=== PATIENT | male | born 1940 | race Caucasian/White ===

== ENCOUNTER 2017-12-05 20:05 | Emergency (ER) | payer OTHER, MEDICARE ==
--- NOTE | 2017-12-05 20:12 | PDOC ---
History of Present Illness - General History Source: Patient Exam Limitations: No Limitations - History of Present Illness Initial Comments: 12/05/17 21:20 The patient is a 77 year old male who presents to the emergency department for evaluation of lower abdominal pain. The patient reports moderate lower abdominal pain after eating a salad from a supermarket yesterday evening. He describes the pain as sharp, stabbing, crampy, and localized to the left lower quadrant. The patient reports having a loose non bloody/tarry stool this morning. He states the cramps comes in waves and lasted through the night prompting to visit an urgent care today. The patient reports visiting an urgent care where he was advised to visit the emergency room to obtain imaging of his abdomen. Of note, the patient reports having a bout of diverticulitis 2-3 years ago The patient denies chest pain, shortness of breath, headache, and dizziness. Denies fevers, chills, nausea, vomiting, and any urinary/bowel symptoms. Denies recent travel. PAST MEDICAL HISTORY: Hypertension, diverticulitis, BPH. PAST SURGICAL HISTORY: Appendectomy and Hernia repair (3x). FAMILY HISTORY: no pertinent history SOCIAL HISTORY: Pt lives with his . MEDICATIONS: reviewed ALLERGIES: As per nursing notes General: No fevers or chills, no weakness, no weight loss HEENT: No change in vision. No sore throat,. No ear pain Cardiovascular: No chest pain or shortness of breath Respiratory:No cough, or wheezing. Gastrointestinal: no nausea, vomiting, diarrhea or constipation, No rectal bleeding Genitourinary: No dysuria, hematuria, or frequency Musculoskeletal: (+)Lower abdominal pain and cramping. Neurologic: No headache, vertigo, dizziness or loss of consciousness Psychiatric: nor depression Skin: No rashes or easy bruising Endocrine: no increased thirst or abnormal weight change Allergic: no skin or latex allergy All other systems reviewed and normal General: Well-nourished well-developed individual, no acute distress HEENT: Throat: Normal, tonsils normal, no erythema or exudate Neck: Supple, no meningeal signs, no lymphadenopathy Eyes:Pupils equal reactive and round, extraocular motion intact Chest: Nontender to palpation Cardiac: S1-S2 normal, regular rate and rhythm, no murmurs rubs or gallops Respiratory: Lungs clear to auscultation bilateral Abdomen: (+)Tenderness to palpation of left lower quadrant. No guarding, no rebound, no tenderness or palpable hernias in the bilateral groins. Soft, nondistended, normal bowel sounds. Extremities: Warm, dry, no cyanosis, clubbing, or edema Skin: No rashes Neuro: Alert and oriented x3, nonfocal exam, grossly intact, normal gait Psych: Normal mood and affect. <Cooper Torrez - Last Filed: 12/05/17 21:21> - General History Source: Patient Exam Limitations: No Limitations - History of Present Illness Initial Comments: 12/05/17 22:03 A portion of this note was documented by scribe services under my direction. I have reviewed the details of the note, within reason, and agree with the documentation. The case summary and management plan written by me. Medical decision making this is a 77-year-old male who comes in complaining of left lower quadrant abdominal pain. Patient was tender over his left lateral lower quadrant and does have a history of diverticulitis. Will obtain workup including CBC, comp, CAT scan of abdomen and pelvis to rule out diverticulitis or any other acute intra-abdominal pathology. CT scan abdomen shows acute diverticulitis without any abscess evidence of abscess or perforation Assessment and plan: This is a 77-year-old male with acute diverticulitis. Patient given Levaquin and Flagyl IV will be sent home on Levaquin and Flagyl by mouth and some Percocet for pain. Patient discharged home and will follow-up with his primary care doctor <Maged Chase I - Last Filed: 12/06/17 00:56> - General Chief Complaint: Pain Stated Complaint: ABD PAIN Time Seen by Provider: 12/05/17 20:11 Past History <Cooper Torrez - Last Filed: 12/05/17 21:21> - Past Medical History HTN: Yes - Surgical History Abdominal Surgery: Yes (HERNIA, APPENDIX) - Immunization History Immunization Up to Date: Yes - Suicide/Smoking/Psychosocial Hx Smoking History: Never smoked Have you smoked in the past 12 months: No Hx Alcohol Use: No Drug/Substance Use Hx: No Substance Use Type: None <Maged Chase I - Last Filed: 12/06/17 00:56> - Past Medical History Allergies/Adverse Reactions: Allergies Allergy/AdvReac Type Severity Reaction Status Date / Time No Known Allergies Allergy Verified 12/05/17 20:07 Home Medications: Ambulatory Orders Atenolol [Tenormin -] mg PO DAILY 11/30/15 Finasteride mg PO DAILY 11/30/15 Levofloxacin [Levaquin] 500 mg PO DAILY #10 tablet 12/05/17 Oxycodone HCl/Acetaminophen [Percocet 5-325 mg Tablet] 1 - 2 tab PO Q4H #6 tablet MDD 6 12/05/17 Tamsulosin HCl [Flomax] 0.4 mg PO DAILY 12/05/17 metroNIDAZOLE [Flagyl -] 500 mg PO BID #20 tablet 12/05/17 *Physical Exam - Vital Signs Last Vital Signs Temp Pulse Resp BP Pulse Ox 98.7 F 87 18 148/78 100 12/05/17 20:05 12/05/17 20:05 12/05/17 20:05 12/05/17 20:05 12/05/17 20:05 <Cooper Torrez - Last Filed: 12/05/17 21:21> ED Treatment Course - LABORATORY CBC & Chemistry Diagram: 12/05/17 20:43 12/05/17 20:43 - ADDITIONAL ORDERS Additional order review: Laboratory Results 12/05/17 12/05/17 20:43 20:43 Sodium 134 L Potassium 3.6 Chloride 100 Carbon Dioxide 26 Anion Gap 8 BUN 16 Creatinine 0.9 Creat Clearance w eGFR > 60 Random Glucose 105 Calcium 9.1 Total Bilirubin 0.8 AST 20 ALT 18 Alkaline Phosphatase 90 Total Protein 7.5 Albumin 3.6 Urine Color Yellow Urine Appearance Clear Urine pH 5.5 Ur Specific [place] 1.020 Urine Protein Negative Urine Glucose (UA) Negative Urine Ketones 2+ H Urine Blood Trace-lysed H Urine Nitrite Negative Urine Bilirubin Negative Urine Urobilinogen 0.2 Ur Leukocyte Esterase Negative 12/05/17 20:43 RBC 4.83 MCV 85.7 MCHC 34.2 RDW 13.2 MPV 9.3 Neutrophils % 84.5 H Lymphocytes % 10.2 Monocytes % 4.5 Eosinophils % 0.4 Basophils % 0.4 - Medications Given in the ED: ED Medications Discontinued Medications Generic Name Dose Route Start Last Admin Trade Name Freq PRN Reason Stop Dose Admin Ketorolac Tromethamine 60 mg 12/05/17 20:38 12/05/17 20:55 Toradol Injection - IM 12/05/17 20:39 Not Given ONCE ONE Morphine Sulfate 4 mg 12/05/17 21:04 12/05/17 21:13 Morphine Injection - IVPUSH 12/05/17 21:05 4 mg ONCE ONE Administration <Cooper Torrez - Last Filed: 12/05/17 21:21> - LABORATORY CBC & Chemistry Diagram: 12/05/17 20:43 12/05/17 20:43 <Maged Chase I - Last Filed: 12/06/17 00:56> *DC/Admit/Observation/Transfer - Attestations Scribe Attestion: Documentation prepared by Cooper Torrez, acting as medical records coder for Maged Chase MD. <Cooper Torrez - Last Filed: 12/05/17 21:21> - Discharge Dispostion Decision to Admit order: Yes <Maged Chase I - Last Filed: 12/06/17 00:56> Diagnosis at time of Disposition: Diverticulitis large intestine w/o perforation or abscess w/bleeding - Discharge Dispostion Disposition: HOME Condition at time of disposition: Stable - Prescriptions Prescriptions: Levofloxacin [Levaquin] 500 mg PO DAILY #10 tablet metroNIDAZOLE [Flagyl -] 500 mg PO BID #20 tablet Oxycodone HCl/Acetaminophen [Percocet 5-325 mg Tablet] 1 - 2 tab PO Q4H #6 tablet MDD 6 - Referrals Referrals: Juan Manuel Harris [Primary Care Provider] - - Patient Instructions Printed Discharge Instructions: Diverticulitis Additional Instructions: Take Levaquin 1 tablet a day for 10 days. Take Flagyl one tablet twice a day for 10 days. So A diverticulitis diet is recommend as part of a short-term treatment plan for acute diverticulitis. Diverticula are small, bulging pouches that can form in the lining of the digestive system. They're found most often in the lower part of the large intestine (colon). This condition is called diverticulosis. In some cases, one or more of the pouches become inflamed or infected. This is known as diverticulitis. Mild cases of diverticulitis are usually treated with antibiotics and a diverticulitis diet, which includes clear liquids and low-fiber foods. More- severe cases typically require hospitalization. A diverticulitis diet is a temporary measure to give your digestive system a chance to rest. Oral intake is usually reduced until bleeding and diarrhea subside. A diverticulitis diet starts with only clear liquids for a few days. Examples of items allowed on a clear liquid diet include: Broth Fruit juices without pulp, such as apple juice Ice chips Ice pops without bits of fruit or fruit pulp Gelatin Water Tea or coffee without cream As you start feeling better, your doctor will recommend that you slowly add low- fiber foods. Examples of low-fiber foods include: Canned or cooked fruits without skin or seeds Canned or cooked vegetables such as green beans, carrots and potatoes (without the skin) Eggs, fish and poultry Refined white bread Fruit and vegetable juice with no pulp Low-fiber cereals Milk, yogurt and cheese eat yogurt at least once a day as it will help replenish the healthy bacteria in your intestines that the antibiotics kill. White rice, pasta and noodles You should feel better within two or three days of starting the diet and antibiotics. If you haven't started feeling better by then, call your doctor. Also contact your doctor if: You develop a fever Your abdominal pain is worsening You're unable to keep clear liquids down These may indicate a complication that requires hospitalization. The diverticulitis diet has few risks. However, continuing a clear liquid diet for more than a few days can lead to weakness and other complications, since it doesn't provide enough of the nutrients your body needs. For this reason, I recommend you to transition to the low fiberl diet as soon as you can tolerate it and then back to a normal diet once you finish the antibiotics. Return to the emergency department immediately with ANY new, persistent or worsening symptoms. Continue any medications as previously prescribed by your physician. You should follow up with your primary doctor as soon as possible regarding today's emergency department visit. . Please make sure your doctor reviews the results of your emergency evaluation. Thank you for coming to the Emergency Department today for your care. It was a pleasure to see you today. Please note that your evaluation is INCOMPLETE until you follow-up with your doctor. - Post Discharge Activity
[2017-12-05 20:15] VITALS: BP 148/78; PULSE 87; TEMP 98.7; BMI 27.3
[2017-12-05] MEDS ORDERED: KETOROLAC TROMETHAMINE 60 MG/2 ML VIAL IM ONE (20:38)
[2017-12-05 21:00] LABS: BASO % 0.4 % (0-2.0); EOS % 0.4 % (0-4.5); HEMATOCRIT 41.4 % (35.4-49); HEMOGLOBIN 14.1 GM/dl (11.7-16.9); LYMPH % 10.2 % (8-40); MCH 29.3 pg (25.7-33.7); MCHC 34.2 g/dl (32.0-35.9); MEAN CELL VOLUME 85.7 fl (80-96); MEAN PLT VOLUME 9.3 fl (7.5-11.1); MONO % 4.5 % (3.8-10.2); NEUT % 84.5 % (42.8-82.8); PLATELET COUNT 193 K/MM3 (134-434); RBC 4.83 M/mm3 (4.00-5.60); RDW 13.2 % (11.9-15.9); WHITE BLOOD COUNT 13.5 K/mm3 (4.0-10.8)
[2017-12-05] MEDS ORDERED: SODIUM CHLORIDE 1,000 ML IV SCH (21:00)
[2017-12-05] MEDS ORDERED: morphine CARPU-JECT 4 MG/1 ML DISP.SYRIN IVPUSH ONE (21:04)
[2017-12-05] MEDS ORDERED: morphine SULFATE 4 MG/ML VIAL ONE (21:07)
[2017-12-05 21:08] LABS: ALBUMIN 3.6 g/dl (3.5-5.0); ALK PHOS 90 U/L (32-92); ANION GAP 8 (8-16); BILIRUBIN,TOTAL 0.8 mg/dl (0.2-1.0); BLOOD UREA NITROGEN 16 mg/dl (7-18); CALCIUM 9.1 mg/dl (8.4-10.2); CHLORIDE 100 mmol/L (98-107); CO2 26 mmol/L (22-28); CREATININE 0.9 mg/dl (0.6-1.3); GLUCOSE,RANDOM 105 mg/dl (74-106); POTASSIUM 3.6 mmol/L (3.5-5.1); SGOT/AST 20 U/L (10-42); SGPT/ALT 18 U/L (10-40); SODIUM 134 mmol/L (136-145); TOT PROT 7.5 g/dl (6.4-8.3)
[2017-12-05 21:19] LABS: PH,URINE 5.5 (4.5-8); URINE APPEARANCE Clear; URINE BILIRUBIN Negative (NEGATIVE); URINE COLOR YELLOW; URINE GLUCOSE (UA) Negative (NEGATIVE); URINE KETONE 2+ (NEGATIVE); URINE LEUK ESTERASE Negative (NEGATIVE); URINE NITRITE Negative (NEGATIVE); URINE PROTEIN Negative (NEGATIVE); URINE UROBILINOGEN 0.2 (0.2-1.0)
[2017-12-05 21:44] LABS: URINE BACTERIA FEW /hpf (NEGATIVE); URINE WBC 0-2 (0-2)
[2017-12-05] MEDS ORDERED: metroNIDAZOLE 250 MG TABLET PO ONE (22:02)
== END 2017-12-06 01:07 | disposition home or self-care (01) ==
LOC: FER 20:05
PROC: 3E03329 Introduction of Other Anti-infective into Peripheral Vein, Percutaneous Approach (ICD-10-PCS; principal; 2017-12-05)
PROC: 3E0337Z Introduction of Electrolytic and Water Balance Substance into Peripheral Vein, Percutaneous Approach (ICD-10-PCS; 2017-12-05)
PROC: 3E033NZ Introduction of Analgesics, Hypnotics, Sedatives into Peripheral Vein, Percutaneous Approach (ICD-10-PCS; 2017-12-05)
DX: K57.32 Diverticulitis of large intestine without perforation or abscess without bleeding (principal)
CPT/HCPCS: 36415; 74177-TC; 80053; 81003; 81015; 85025; 96361; 96365; 96368; 96375; 99283-25; J7030

== ENCOUNTER 2018-04-30 19:17 | Emergency (ER) | payer OTHER, MEDICARE ==
--- NOTE | 2018-04-30 19:24 | PDOC ---
History of Present Illness - General History Source: Patient Exam Limitations: No Limitations - History of Present Illness Initial Comments: 04/30/18 19:55 The patient is a 77 year old male, with a significant past medical history of hypertension, diverticulitis, BPH, who presents to the emergency department with , 5 hours of sudden onset lower abdominal pain and chills. As per patient, he was at home when his pain onset. He notes it is similar to his previous diagnosis of diverticulitis (11/2017) at which time he was given medications and GI follow up. He denies any recent headache or dizziness. He denies any recent nausea, vomit, diarrhea or constipation. He denies any recent chest pain or shortness of breath. He denies any recent dysuria, frequency, urgency or hematuria. Allergies: NKA Past surgical history: Appendectomy and Hernia repair (3x). Social History: Nonsmoker. Denies EtOH use and recreational drug use. <Dina Mtz - Last Filed: 04/30/18 20:34> <Arabella Dailey - Last Filed: 05/01/18 05:28> - General Chief Complaint: Pain, Acute Stated Complaint: ABDOMINAL PAIN Time Seen by Provider: 04/30/18 19:24 Past History <Dina Mtz - Last Filed: 04/30/18 20:34> - Past Medical History COPD: No GI Disorders: Yes (DIVERTICULITIS) Disorders: Yes (BPH) HTN: Yes - Surgical History Abdominal Surgery: Yes (HERNIA, APPENDIX) Appendectomy: Yes - Immunization History Immunization Up to Date: Yes - Suicide/Smoking/Psychosocial Hx Smoking History: Never smoked Have you smoked in the past 12 months: No If you are a former smoker, when did you quit?: 30 yrs ago Hx Alcohol Use: No Drug/Substance Use Hx: No Substance Use Type: None <Arabella Dailey - Last Filed: 05/01/18 05:28> - Past Medical History Allergies/Adverse Reactions: Allergies Allergy/AdvReac Type Severity Reaction Status Date / Time No Known Allergies Allergy Verified 12/05/17 20:07 Home Medications: Ambulatory Orders Atenolol [Tenormin -] 25 mg PO DAILY 11/30/15 Finasteride 1 mg PO DAILY 11/30/15 Tamsulosin HCl [Flomax] 0.4 mg PO DAILY 12/05/17 Oxycodone HCl/Acetaminophen [Percocet 5-325 mg Tablet] 1 tab PO Q6H PRN #6 tablet MDD 2 tabs 04/30/18 Sulfamethoxazole/Trimethoprim [Bactrim Ds -] 1 tab PO BID #20 tablet 04/30/18 metroNIDAZOLE [Flagyl -] 500 mg PO BID #20 tablet 04/30/18 Review of Systems - Review of Systems Able to Perform ROS?: Yes Comments:: 04/30/18 19:56 CONSTITUTIONAL: Present: Chills. Absent: fatigue EYES: Absent: visual changes ENT: Absent: ear pain, no sore throat CARDIOVASCULAR: Absent: chest pain, no palpitations RESPIRATORY: Absent: cough, no SOB GI: Present: Lower abdominal pain. Absent: no nausea, no vomiting, no constipation, no diarrhea GENITOURINARY: Absent: dysuria, no frequency, no hematuria MUSKULOSKELETAL: Absent: back pain, no arthralgia, no myalgia SKIN: Absent: rash NEURO: Absent: headache All Other Systems: Reviewed and Negative <Dina Mtz - Last Filed: 04/30/18 20:34> *Physical Exam - Vital Signs Last Vital Signs Temp Pulse Resp BP Pulse Ox 98.5 F 87 16 183/92 H 100 04/30/18 19:22 04/30/18 19:22 04/30/18 19:22 04/30/18 19:22 04/30/18 19:22 - Physical Exam Comments: 04/30/18 19:56 GENERAL: The patient is awake, alert, and fully oriented, in no acute distress. HEAD: Normal with no signs of trauma. EYES: Pupils equal, round and reactive to light, extraocular movements intact, sclera anicteric, conjunctiva clear with no pallor. ENT: Ears normal, nares patent, oropharynx clear without exudates. Moist mucous membranes. NECK: Normal range of motion, supple without lymphadenopathy, JVD, or masses. LUNGS: Breath sounds equal, clear to auscultation bilaterally. No wheeze/ crackles. HEART: Regular rate and rhythm, normal S1 and S2 without murmur or rub. +ABDOMEN: Moderate suprapubic tenderness. Mild right and left lower quadrant pain with mild rebound. No guarding. Mildly distended. Soft. BS wnl. No palpable masses. No hepatosplenomegaly. EXTREMITIES: Normal range of motion, no edema. No clubbing or cyanosis. No cords, erythema, or tenderness. NEUROLOGICAL: Cranial nerves II through XII grossly intact. Normal speech, normal gait. PSYCH: Normal mood, normal affect. SKIN: Warm, Dry, normal turgor, no rashes or lesions noted. <Dina Mtz - Last Filed: 04/30/18 20:34> ED Treatment Course - LABORATORY CBC & Chemistry Diagram: 04/30/18 20:00 04/30/18 20:00 <Dina Mtz - Last Filed: 04/30/18 20:34> - LABORATORY CBC & Chemistry Diagram: 04/30/18 20:00 04/30/18 20:00 <Arabella Dailey - Last Filed: 05/01/18 05:28> Progress Note - Progress Note Progress Note: Documentation has been prepared under my direction and personally reviewed by me in its entirety. I attest that this documented accurately reflects all work, treatment, procedures and medical decision making performed by me. <Arabella Dailey - Last Filed: 05/01/18 05:28> Medical Decision Making - Medical Decision Making As noted above, this 77-year-old man presents with 1 day history of lower abdominal pain; he states it is very similar to previous pain of acute diverticulitis in November of this year. He was treated with outpatient antibiotics during that episode and did well. Today, he has no fever but had chills just prior to presentation. There is no vomiting noted. Exam as noted. Workup notable for white blood cell count of 12,900; remainder of the laboratory evaluation essentially normal except for moderate prerenal azotemia. Abdominal/pelvic CT performed with IV contrast: This showed sigmoid diverticulitis without abscess or perforation. Results discussed with the patient. Since patient is comfortable and not vomiting, he will be a good candidate for outpatient antibiotic treatment of his acute diverticulitis. Previous antibiotic regimen was Levaquin with Flagyl for 10 days. Patient states that he felt uncomfortable anddysphoric during the time that he had his acute diverticulitis; although these feelings could be related to the acute illness at itself, because of his advanced age and possible neuropsychiatric side effects of Levaquin elderly patients, we will change to Bactrim DS 1 tab twice a day as well as Flagyl 500 mg twice a day for 10 days. First dose of each the antibiotics will be given here in the ER Remainder of the 10 day course of each antibiotic will be sent to his pharmacy Patient states that he had good pain relieving effect for the first 48 hours of his previous acute diverticulitis with Percocet. He will be given small (#6) prescription for Percocet 5/325 to be used up to twice a day as needed for severe pain. No be given one tablet Percocet 5/325 prior to discharge. He will return to the emergency room if he has increasing pain/vomiting/high fever otherwise he will follow-up with his own general medical doctor within the next 5-7 days <Arabella Dailey - Last Filed: 05/01/18 05:28> *DC/Admit/Observation/Transfer - Attestations Scribe Attestion: 04/30/18 19:56 Documentation prepared by Dina Mtz, acting as medical office manager for Arabella Dailey MD. <Dina Mtz - Last Filed: 04/30/18 20:34> <Arabella Dailey - Last Filed: 05/01/18 05:28> Diagnosis at time of Disposition: Diverticulitis large intestine w/o perforation or abscess w/bleeding - Discharge Dispostion Disposition: HOME Condition at time of disposition: Stable - Prescriptions Prescriptions: metroNIDAZOLE [Flagyl -] 500 mg PO BID #20 tablet Oxycodone HCl/Acetaminophen [Percocet 5-325 mg Tablet] 1 tab PO Q6H PRN #6 tablet MDD 2 tabs PRN Reason: Pain Sulfamethoxazole/Trimethoprim [Bactrim Ds -] 1 tab PO BID #20 tablet - Referrals Referrals: ON STAFF,NOT [Primary Care Provider] - - Patient Instructions Printed Discharge Instructions: Diverticulitis Additional Instructions: Light diet for the next several days Bactrim DS 1 tab twice a day for 10 days Flagyl 500 mg twice a day for 10 days Percocet 5/325 up to twice a day for the next 2-3 days, then Tylenol as needed Return to ER if you have severe pain, persistent vomiting or high fever Follow-up with your general doctor within the next week - Post Discharge Activity
[2018-04-30 19:45] VITALS: BP 183/92; PULSE 87; TEMP 98.5; BMI 27.3
[2018-04-30 20:12] LABS: PH,URINE 7.5 (4.5-8); URINE APPEARANCE Clear; URINE BILIRUBIN Negative (NEGATIVE); URINE COLOR Yellow; URINE GLUCOSE (UA) Negative (NEGATIVE); URINE KETONE Negative (NEGATIVE); URINE LEUK ESTERASE Negative (NEGATIVE); URINE NITRITE Negative (NEGATIVE); URINE PROTEIN Negative (NEGATIVE); URINE UROBILINOGEN 0.2 (0.2-1.0)
[2018-04-30 20:17] LABS: HEMATOCRIT 41.4 % (35.4-49); HEMOGLOBIN 13.8 GM/dl (11.7-16.9); MCH 29.4 pg (25.7-33.7); MCHC 33.4 g/dl (32.0-35.9); MEAN CELL VOLUME 87.9 fl (80-96); MEAN PLT VOLUME 9.1 fl (7.5-11.1); PLATELET COUNT 177 K/MM3 (134-434); RBC 4.71 M/mm3 (4.00-5.60); WHITE BLOOD COUNT 12.9 K/mm3 (4.0-10.8)
[2018-04-30 20:29] LABS: ALBUMIN 3.7 g/dl (3.5-5.0); ALK PHOS 90 U/L (32-92); ANION GAP 9 MMOL/L (8-16); BILIRUBIN,TOTAL 0.6 mg/dl (0.2-1.0); BLOOD UREA NITROGEN 19 mg/dl (7-18); CALCIUM 8.8 mg/dl (8.4-10.2); CHLORIDE 102 mmol/L (98-107); CO2 26 mmol/L (22-28); GLUCOSE,RANDOM 108 mg/dl (74-106); POTASSIUM 3.8 mmol/L (3.5-5.1); SGOT/AST 23 U/L (10-42); SGPT/ALT 20 U/L (10-40); SODIUM 137 mmol/L (136-145); TOT PROT 7.1 g/dl (6.4-8.3)
[2018-04-30 21:17] LABS: PLATELET ESTIMATE ADEQUATE
[2018-04-30] MEDS ORDERED: metroNIDAZOLE 250 MG TABLET PO ONE (22:15)
[2018-04-30] MEDS ORDERED: SULFAMETHOXAZOLE/TRIMETHOPRIM 800MG/160MG D.S. TABLET PO ONE (22:15)
[2018-04-30] MEDS ORDERED: SULFAMETHOXAZOLE/TRIMETHOPRIM 800MG/160MG D.S. TABLET ONE (22:21)
[2018-04-30] MEDS ORDERED: metroNIDAZOLE 250 MG TABLET ONE (22:21)
== END 2018-04-30 22:28 | disposition home or self-care (01) ==
LOC: FER 19:17
DX: K57.33 Diverticulitis of large intestine without perforation or abscess with bleeding (principal); I10 Essential (primary) hypertension; N40.0 Benign prostatic hyperplasia without lower urinary tract symptoms
CPT/HCPCS: 36415; 74177-TC; 80053; 81003; 83605; 85025; 87040; 99283-25

== ENCOUNTER 2021-09-27 18:39 | Emergency (ER) | payer OTHER, MEDICARE ==
[2021-09-27 18:56] VITALS: TEMP 97.8; BMI 26.7
[2021-09-27 20:04] LABS: HEMOGLOBIN 13.2 G/dL (11.7-16.9); MCH 29.2 pg (25.7-33.7); MCHC 33.8 g/dl (32.0-35.9); MEAN CELL VOLUME 86.4 fl (80-96); MEAN PLT VOLUME 8.2 fl (7.5-11.1); PLATELET COUNT 138.7 10^3/uL (134-434); RBC 4.51 10^6/uL (4.00-5.60); RDW 15.3 % (11.9-15.9); WHITE BLOOD COUNT 6.9 10^3/uL (4.0-10.8)
[2021-09-27 20:26] LABS: ANISOCYTOSIS 1+
[2021-09-27 20:27] LABS: PLATELET ESTIMATE ADEQUATE
[2021-09-27 20:43] LABS: ALBUMIN 3.5 g/dl (3.4-5.0); BILIRUBIN,TOTAL 0.7 mg/dl (0.2-1); CALCIUM 8.8 mg/dl (8.5-10); CREATININE 0.8 mg/dl (0.55-1.3); TOT PROT 6.5 g/dl (6.4-8.2)
[2021-09-27] MEDS ORDERED: ONDANSETRON *ODT* 4 MG TABLET SL ONE (21:15)
[2021-09-27] MEDS ORDERED: ONDANSETRON *ODT* 4 MG TABLET ONE (21:21)
[2021-09-27 21:30] VITALS: BP 150/74; PULSE 58
== END 2021-09-27 22:30 | disposition home or self-care (01) ==
LOC: FER 18:39
DX: K21.9 Gastro-esophageal reflux disease without esophagitis (principal); R11.0 Nausea
CPT/HCPCS: 36415; 80053; 84484; 85027; 99284-25; Q0162

== ENCOUNTER 2023-01-03 16:06 | Emergency (ER) | payer OTHER, MEDICARE ==
[2023-01-03 16:39] VITALS: BP 150/81; PULSE 82; RESP 18; TEMP 97.6; BMI 27.3
[2023-01-03 17:10] LABS: HEMATOCRIT 40.8 % (35.4-49); HEMOGLOBIN 13.6 G/dL (11.7-16.9); MCH 29.7 pg (25.7-33.7); MCHC 33.4 g/dl (32.0-35.9); MEAN CELL VOLUME 89.1 fl (80-96); PLATELET COUNT 151.7 10^3/uL (134-434); RBC 4.58 10^6/uL (4.00-5.60); RDW 14.6 % (11.9-15.9)
[2023-01-03 17:28] LABS: ALBUMIN 3.9 g/dl (3.4-5.0); BILIRUBIN,TOTAL 0.6 mg/dl (0.2-1); BLOOD UREA NITROGEN 14.4 mg/dl (7-18); CALCIUM 8.3 mg/dl (8.5-10.1); SGOT/AST 34.9 U/L (15-37); TOT PROT 6.6 g/dl (6.4-8.2)
[2023-01-03 17:31] LABS: POTASSIUM 4.6 mmol/L (3.5-5.1)
== END 2023-01-03 17:48 | disposition home or self-care (01) ==
LOC: FER 16:06
DX: R07.89 Other chest pain (principal)
CPT/HCPCS: 36415; 71046-TC-FY; 80053; 84484; 85027; 93005; 99285-25